=== PATIENT | male | born 1955 | race Caucasian/White ===

== ENCOUNTER 2023-08-03 22:16 | Observation (INO) | payer MEDICARE, OTHER ==
--- NOTE | 2023-08-03 22:57 | ED ---
General Adult HPI - General Chief complaint: Recheck/Abnormal Lab/Rx Stated complaint: Picc Line Replacement Time Seen by Provider: 08/03/23 22:26 Source: patient Mode of arrival: EMS Limitations: no limitations - History of Present Illness Initial comments: 68-year-old male with a history significant for aphasia following cerebral infarction and is normally bedbound presenting to the ED from [facility] by request of Dr. Montoya. Patient being treated with IV antibiotics through midline. This was apparently pulled out by the patient and was sent here for midline insertion by interventional radiology. Patient is nonverbal and unable to provide any meaningful history at this time. Does appear that patient was diagnosed with pneumonia with acute hypoxic respiratory failure and acute kidney injury on 07/08/2023. On 07/17/23 was diagnosed with MRSA. Review of medication administration shows patient is getting daptomycin 500 mg 1 dose every 48 hours due to pneumonia and MRSA. His last dose was completed on 31 July. - Related Data Allergies Allergy/AdvReac Type Severity Reaction Status Date / Time No Known Allergies Allergy Verified 08/03/23 22:28 Review of Systems ROS Statement: Those systems with pertinent positive or pertinent negative responses have been documented in the HPI. ROS Other: All systems not noted in ROS Statement are negative. Past Medical History Past Medical History: CVA/TIA, Diabetes Mellitus, Renal Disease Additional Past Medical History / Comment(s): hemiplegia and hemparesis post cva, CKD, depression, aphasia, MRSA, anemia, reoccurent uti, htn, generalized muscle weakness. PICC line History of Any Multi-Drug Resistant Organisms: None Reported Past Psychological History: Unable to Obtain Smoking Status: Unknown if ever smoked Past Alcohol Use History: Unable to Obtain Past Drug Use History: Unable to Obtain General Exam Limitations: no limitations General appearance: alert, other (Makes incoherent noises) Neck exam: Present: normal inspection Respiratory exam: Present: other (Coarse breath sounds bilaterally) Cardiovascular Exam: Present: tachycardia GI/Abdominal exam: Present: soft Skin exam: Present: warm, dry Course Vital Signs 08/03/23 22:21 Temperature 97.9 F Pulse Rate 121 H Respiratory 20 Rate Blood Pressure 150/74 O2 Sat by Pulse 97 Oximetry Medical Decision Making - Medical Decision Making Was pt. sent in by a medical professional or institution (, PA, SWITCHBOARD OPERATOR RECEPTIONIST, urgent care, hospital, or alf...) When possible be specific @ -[facility] Did you speak to anyone other than the patient for history (EMS, parent, family, police, friend...)? What history was obtained from this source @ -No Did you review nursing and triage notes (agree or disagree)? Why? @ -I reviewed and agree with nursing and triage notes Were old charts reviewed (outside hosp., previous admission, EMS record, old EKG, old radiological studies, urgent care reports/EKG's, alf records)? Report findings @ -[facility] Entirety of history obtained from this.obtained Differential Diagnosis (chest pain, altered mental status, abdominal pain women, abdominal pain men, vaginal bleeding, weakness, fever, dyspnea, syncope, headache, dizziness, GI bleed, back pain, seizure, CVA, palpatations, mental health, musculoskeletal)? @ -Differential Fever: Pneumonia, viral URI, endocarditis, myocarditis, pericarditis, otitis, sinusitis, peritonsillar Abscess, retropharyngeal Abscess, epiglottitis, peritonitis, appendicitis, Ramya cystitis, diverticulitis, hepatitis, colitis, UTI, PID, TOA, pyelonephritis, prostatitis, epididymitis, meningitis, encephalitis, pulmonary embolism, CVA, thyroid storm, pancreatitis, adrenal crisis, cavernous sinus thrombosis, this is not meant to be an all-inclusive list. EKG interpreted by me (3pts min.). @ - EKG interpreted me showing a sinus tachycardia at 129 bpm with no obvious ST or T wave changes however interpretation limited secondary to artifact. AL 172, QRS 63, QT/QTc 380/456 X-rays interpreted by me (1pt min.). @ -Chest x-ray inter by me which does show evidence of pneumonia. CT interpreted by me (1pt min.). @ -None done U/S interpreted by me (1pt. min.). @ -None done What testing was considered but not performed or refused? (CT, X-rays, U/S, labs)? Why? @ -None What meds were considered but not given or refused? Why? @ -None Did you discuss the management of the patient with other professionals (professionals i.e. , PA, SWITCHBOARD OPERATOR RECEPTIONIST, lab, RT, psych nurse, outreach and education social worker, show card writer, teacher, public information officer, telephonic case manager)? Give summary @ -Case discussed with Nataly who accepts admission under [facility]. Was smoking cessation discussed for >3mins.? @ -No Was critical care preformed (if so, how long)? @ -No Were there social determinants of health that impacted care today? How? (Homelessness, low income, unemployed, alcoholism, drug addiction, transportation, low edu. Level, literacy, decrease access to med. care, penitentiary, re hab)? @ -No Was there de-escalation of care discussed even if they declined (Discuss DNR or withdrawal of care, Hospice)? DNR status @ -No What co-morbidities impacted this encounter? (DM, HTN, Smoking, COPD, CAD, Cancer, CVA, ARF, Chemo, Hep., AIDS, mental health diagnosis, sleep apnea, morbid obesity)? @ -History of CVA with aphasia Was patient admitted / discharged? Hospital course, mention meds given and route, prescriptions, significant lab abnormalities, going to OR and other pertinent info. @ -Admission 63-year-old male sent from [facility]. According the paperwork was receiving treatment for MRSA and pneumonia with daptomycin 500 mg every 48 hours through PICC line. His last dose was on 08/01/2023. Patient pulled the PICC line out and was sent in for admission for new PICC line. Patient will be admitted with consult to interventional radiology for PICC line placement. At this time laboratory workup is pending however chest x-ray does show evidence of pneumonia. Undiagnosed new problem with uncertain prognosis? @ -No Drug Therapy requiring intensive monitoring for toxicity (Heparin, Nitro, Insulin, Cardizem)? @ -No Were any procedures done? @ -No Diagnosis/symptom? @ -PICC line replacement Acute, or Chronic, or Acute on Chronic? @ -Acute Uncomplicated (without systemic symptoms) or Complicated (systemic symptoms)? @ -Uncomplicated Side effects of treatment? @ -No Exacerbation, Progression, or Severe Exacerbation? @ -No Poses a threat to life or bodily function? How? (Chest pain, [place], [place], pneumonia, PE, COPD, DKA, ARF, appy, cholecystitis, CVA, Diverticulitis, Homicidal, Suicidal, threat to staff... and all critical care pts) @ -Unlikely Disposition Clinical Impression: PIC line (peripherally inserted central catheter) removal Disposition: ADMITTED IP TO THIS HOSP Condition: Good Referrals: Tony Bhatia DO [Primary Care Provider] - 1-2 days Time of Disposition: 01:00
--- NOTE | 2023-08-04 00:19 | XR ---
EXAM: XR Chest, 1 View CLINICAL HISTORY: ITS.REASON XR Reason: hx pna TECHNIQUE: Frontal view of the chest. COMPARISON: No relevant prior studies available. FINDINGS: Lungs: Hazy right mid and lower lung zone opacity. Left lung is clear. Pleural space: Small circumferentially loculated right pleural effusion. No left pleural effusion. No pneumothorax. Heart: Unremarkable. No cardiomegaly or pulmonary vascular congestion. Bones/joints: No acute fracture. No dislocation. IMPRESSION: 1. Hazy right mid and lower lung zone opacity. Correlate clinically for pneumonia. 2. Small circumferentially loculated right pleural effusion.
[2023-08-04 01:13] LABS: Anisocytosis Moderate; Basophils # (A) 0.1 k/uL (0-0.2); Basophils % (A) 0 %; Eosinophils # (A) 0.4 k/uL (0-0.7); Eosinophils % (A) 3 %; HCT 31.6 % (39.0-53.0); HGB 9.8 gm/dL (13.0-17.5); Hypochromasia Marked; Lymphocytes # (A) 1.1 k/uL (1.0-4.8); Lymphocytes % (A) 7 %; MCH 24.9 pg (25.0-35.0); MCHC 30.9 g/dL (31.0-37.0); MCV 80.4 fL (80.0-100.0); Mean Platelet Volume 7.9; Microcytosis Slight; Monocytes # (A) 0.7 k/uL (0-1.0); Monocytes % (A) 4 %; Neutrophils # (A) 13.4 k/uL (1.3-7.7); Neutrophils % (A) 85 %; Platelet Count 324 k/uL (150-450); RBC 3.93 m/uL (4.30-5.90); RDW 20.3 % (11.5-15.5); WBC 15.8 k/uL (3.8-10.6)
[2023-08-04] MEDS ORDERED: NALOXONE 0.4 MG/ML 1 ML VIAL IV PRN (01:13)
[2023-08-04] MEDS ORDERED: ACETAMINOPHEN TAB 325 MG TAB PO PRN (01:20)
[2023-08-04] MEDS ORDERED: HYDROmorphone 1 MG/ML 1 ML SYRINGE IVP PRN (01:20)
[2023-08-04] MEDS: SODIUM CHLORIDE 0.9% 1,000 ML IV SCH (01:30)
[2023-08-04] MEDS: DAPTOmycin 500 MG in SODIUM CHLORIDE 0.9% 50 ML IVPB SCH (01:31)
[2023-08-04] MEDS: ONDANSETRON 4 MG/2 ML VIAL IVP PRN (01:33)
[2023-08-04 01:38] LABS: ALT 21 U/L (4-49); AST 27 U/L (17-59); African American GFR (CKD) 53 (>60 ml/min/1.73 sqM); Albumin 3.8 g/dL (3.5-5.0); Alkaline Phosphatase 142 U/L (38-126); Anion Gap 12 mmol/L; Blood Urea Nitrogen 45 mg/dL (9-20); Calcium 9.1 mg/dL (8.4-10.2); Carbon Dioxide 25 mmol/L (22-30); Chloride 104 mmol/L (98-107); Glucose 152 mg/dL (74-99); Non-African American GFR(CKD) 46 (>60 ml/min/1.73 sqM); Sodium 141 mmol/L (137-145); Total Bilirubin 0.4 mg/dL (0.2-1.3); Total Protein 8.2 g/dL (6.3-8.2)
[2023-08-04 01:48] LABS: Partial Thromboplastin Time 24.4 sec (22.0-30.0); Prothrombin Time 10.8 sec (10.0-12.5)
[2023-08-04] MEDS ORDERED: DEXTROSE 50% SYRINGE 50 ML IVP PRN ×2 (02:56)
[2023-08-04] MEDS: SODIUM CHLORIDE 0.9% 1,000 ML IV ONE (03:36)
[2023-08-04] MEDS: METOCLOPRAMIDE 5 MG/ML 2 ML VIAL IVP STA (04:06)
--- NOTE | 2023-08-04 05:41 | CT ---
EXAM: CT Abdomen and Pelvis Without Intravenous Contrast CLINICAL HISTORY: intractable n v TECHNIQUE: Axial computed tomography images of the abdomen and pelvis without intravenous contrast. CTDI is 8.3 mGy and DLP is 523.4 mGy-cm. This CT exam was performed using one or more of the following dose reduction techniques: automated exposure control, adjustment of the mA and/or kV according to patient size, and/or use of iterative reconstruction technique. Coronal and sagittal reformatted images were created and reviewed. 640 images COMPARISON: No relevant prior studies available. FINDINGS: Lung bases: Small to moderate consolidations of bilateral lower lobes with the air bronchogram, larger on the right. Pleural space: Small bilateral pleural effusions. ABDOMEN: Liver: Mild hepatomegaly. Gallbladder and bile ducts: Cholecystectomy clips. No ductal dilation. Pancreas: Unremarkable. No ductal dilation. Spleen: Unremarkable. No splenomegaly. Adrenals: Unremarkable. No mass. Kidneys and ureters: Likely left renal cysts, measuring up to 5.3 cm. No obstructing stones. No hydronephrosis. Stomach and bowel: Unremarkable. No obstruction. No mucosal thickening. PELVIS: Appendix: Normal appendix. Bladder: Unremarkable. No stones. Reproductive: Unremarkable as visualized. ABDOMEN and PELVIS: Intraperitoneal space: Unremarkable. No free air. No significant fluid collection. Bones/joints: Osteopenia. Moderate degenerative changes. 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 Soft tissues: Retracted or undescended right testis. Small fat- containing left inguinal hernia. Vasculature: Moderate amount of atherosclerotic calcifications. No abdominal aortic aneurysm. Lymph nodes: Unremarkable. No enlarged lymph nodes. Tubes, lines and devices: PEG tube is in place. IMPRESSION: 1. Small bilateral pleural effusions. 2. Small to moderate consolidations of bilateral lower lobes with the air bronchogram, larger on the right. Bilateral pneumonia and/or atelectasis versus aspiration, worse on the right.
[2023-08-04 07:53] LABS: Glucose,Whole Blood 152 mg/dL (70-110)
[2023-08-04] MEDS: INSULIN ASPART (NovoLOG) 100 UNIT/ML VIAL SQ SCH (08:19)
[2023-08-04] MEDS: PANTOPRAZOLE 40 MG TABLET PO SCH (08:41)
[2023-08-04] MEDS: METOPROLOL TARTRATE 12.5 MG TAB PO SCH (08:41)
[2023-08-04 10:00] LABS: Appearance,Urine Clear (Clear); Bilirubin,Urine Negative (Negative); Blood,Urine Trace (Negative); Color,Urine Colorless; Glucose,Urine (UA) Negative (Negative); Ketones,Urine Negative (Negative); Leukocyte Esterase,Urine Large (Negative); Mucus,Urine Occasional /hpf; Nitrite,Urine Positive (Negative); Protein,Urine 1+ (Negative); RBC,Urine 1 /hpf (0-5); Specific Gravity,Urine 1.017 (1.001-1.035); Squamous Epithelial Cell,Urine <1 /hpf (0-4); Urobilinogen,Urine <2.0 mg/dL (<2.0); WBC,Urine 18 /hpf (0-5)
[2023-08-04] MEDS: FAMOTIDINE 20 MG/2 ML VIAL IV SCH (10:13)
[2023-08-04 12:15] LABS: Glucose,Whole Blood 132 mg/dL (70-110)
[2023-08-04] MEDS: DOCUSATE ORAL SOLN 100 MG/10 ML CUP PEG/G-TUBE SCH (13:45)
--- NOTE | 2023-08-04 15:12 | P.HPIM ---
History of Present Illness H&P Date: 08/04/23 Chief Complaint: PICC line pulled out This is a 68-year-old patient, is a resident of [facility]. Patient is at her previous stroke and patient is aphasic. Right-sided weakness. Nobody at the bedside to give a history. As per the ER notes patient on July 07 had pneumonia with respiratory failure and July 17, 2023 patient was diagnosed with MRSA. Has been getting daptomycin. Patient pulled out his PICC line. Was transferred here for a PICC line to be placed. Last dose apparently was on July 31. Patient laying in bed. Eyes open. Not really able to communicate. Has a PEG tube. Nonambulatory. Review of systems: Unable to obtain as patient nonverbal. Physical examination: VITAL SIGNS: 97.9, 120, 20, 150/74, 97% room air upon presentation GENERAL: BMI 22.8, laying in bed awake not in distress. EYES: Pupils equal. Conjunctiva manju l. HEENT: [External appearance of nose and ears normal, oral cavity dry mucous membrane NECK: JVD not raised; masses not palpable. HEART: First and second heart sounds are normal; no edema. LUNGS: Respiratory rate normal; clear to auscultation. ABDOMEN: Soft, nontender, liver spleen not palpable, no masses palpable. PEG tube PSYCH: [Patient is nonverbal, unable to assess l. MUSCULOSKELETAL:No Clubbing/cyanosis;muscles-grossly intact NEUROLOGICAL: Patient is aphasic. No movement in the right arm or right leg. Contracture of the right hand.. LYMPHATICS: No lymph nodes palpable in the axilla and neck INVESTIGATIONS, reviewed in the clinical context: August 03: White count 15.8 hemoglobin 9.8 platelets 324 potassium 5 BUN 45 creatinine 1.54 EKG tracing personally reviewed by me-sinus tachycardia. Rate 129 nonspecific T wave changes. Chest x-ray film personally reviewed by me-portable. Some decrease in volume on the right side. Rotated film. Probable infiltrate CT abdomen pelvis: Small to moderate consolidation of bilateral lower lobes with air bronchograms. Larger on the right. Assessment and plan: -PICC line, pulled out by the patient accidentally. Admitted for replacement of the same -Recent pneumonia. Patient has no active symptoms. Pulse ox is good on room air. Breathing comfortable. -Sinus tachycardia likely from decreased fluid intake/dehydration -Probable chronic kidney disease. Stage III. Baseline labs not available. -Diabetes mellitus type 2, chronically insulin Follow Accu-Cheks. Resume home dose. -Right hemiparesis from prior stroke. Patient nonambulatory. -Chronic dysphagia and dysarthria PEG tube for feeding -Recent MRSA infection Patient to continue with daptomycin once IV access is done. Past Medical History Past Medical History: CVA/TIA, Diabetes Mellitus, Renal Disease Additional Past Medical History / Comment(s): hemiplegia and hemparesis post cva, CKD, depression, aphasia, MRSA, anemia, reoccurent uti, htn, generalized muscle weakness. PICC line History of Any Multi-Drug Resistant Organisms: None Reported Past Psychological History: Unable to Obtain Smoking Status: Unknown if ever smoked Past Alcohol Use History: Unable to Obtain Past Drug Use History: Unable to Obtain Medications and Allergies Home Medications Medication Instructions Recorded Confirmed Type Acetaminophen Oral Susp [Tylenol] 650 mg PEG/G-TUBE QID@05,11,17,23 08/04/23 08/04/23 History Atorvastatin Calcium [Lipitor] 40 mg PEG/G-TUBE HS 08/04/23 08/04/23 History Budesonide [Pulmicort] 0.5 mg INHALATION RT-BID@08,199908/04/23 08/04/23 History DAPTOmycin [Cubicin] 500 mg IV Q48H 08/04/23 08/04/23 History Docusate Oral Soln [Colace Oral 100 mg PEG/G-TUBE BID 08/04/23 08/04/23 History Soln] Famotidine [Pepcid] 20 mg PEG/G-TUBE BID 08/04/23 08/04/23 History Fluconazole [Diflucan] 150 mg PEG/G-TUBE DAILY 08/04/23 08/04/23 History Insulin Glargine,Hum.rec.anlog 22 units SQ BID@08,199908/04/23 08/04/23 History [Insulin Glargine Solostar] Insulin Lispro [Insulin Lispro See Protocol SQ ACHS 08/04/23 08/04/23 History Kwikpen U-100] Ipratropium-Albuterol Nebulize 3 ml INHALATION RT-QID 08/04/23 08/04/23 History [Duoneb 0.5 mg-3 mg/3 ml Soln] Metoprolol Tartrate [Lopressor] 12.5 mg PEG/G-TUBE BID 08/04/23 08/04/23 History Mirtazapine [Remeron Soluspan] 30 mg PEG/G-TUBE HS 08/04/23 08/04/23 History Multivitamins, Thera Liquid 5 ml PEG/G-TUBE DAILY@1600 08/04/23 08/04/23 History [Theragran Liquid (formulary)] Saline Flush 0.9% 10 ml IV DIRECTED 08/04/23 08/04/23 History Sennosides [Senokot] 17.2 mg PEG/G-TUBE HS 08/04/23 08/04/23 History Allergies Allergy/AdvReac Type Severity Reaction Status Date / Time No Known Allergies Allergy Verified 08/04/23 08:34 Physical Exam Vitals: Vital Signs Temp Pulse Resp BP Pulse Ox 08/04/23 07:50 98.5 F 62 18 124/67 97 08/04/23 06:00 98.4 F 129 H 16 133/70 97 08/04/23 03:53 97.5 F L 128 H 20 125/72 95 08/03/23 22:21 97.9 F 121 H 20 150/74 97 Intake and Output 08/03/23 08/04/23 08/04/23 22:59 06:59 14:59 Intake Total 1000 Output Total 1200 Balance 1000 -1200 Intake: IV 1000 Invasive Line 2 1000 Output: Urine 600 Uretheral (Gray) 600 Post Void Residual 600 Other: Weight 68.039 kg Results CBC & Chem 7: 08/04/23 00:54 08/04/23 00:54 Labs: Abnormal Lab Results - Last 24 Hours (Table) 08/04/23 08/04/23 08/04/23 Range/Units 00:54 00:54 07:47 WBC 15.8 H (3.8-10.6) k/uL RBC 3.93 L (4.30-5.90) m/uL Hgb 9.8 L (13.0-17.5) gm/dL Hct 31.6 L (39.0-53.0) % MCH 24.9 L (25.0-35.0) pg MCHC 30.9 L (31.0-37.0) g/dL RDW 20.3 H (11.5-15.5) % Neutrophils # 13.4 H (1.3-7.7) k/uL BUN 45 H (9-20) mg/dL Creatinine 1.54 H (0.66-1.25) mg/dL Glucose 152 H (74-99) mg/dL POC Glucose (mg/dL) 152 H (70-110) mg/dL Alkaline Phosphatase 142 H (38-126) U/L
[2023-08-04] MEDS: IPRATROPIUM-ALBUTEROL 3 ML NEB INHALATION SCH (15:34)
[2023-08-04] MEDS: MULTIVITAMINS, THERA LIQUID 237 ML BOTTLE PEG/G-TUBE SCH (16:00)
[2023-08-04 16:35] VITALS: BP 130/68; PULSE 121; RESP 22; TEMP 97.9
[2023-08-04] MEDS ORDERED: MIRTAZAPINE 15 MG TAB PEG/G-TUBE SCH (21:00)
[2023-08-04] MEDS ORDERED: ATORVASTATIN 40 MG TAB PEG/G-TUBE SCH (21:00)
[2023-08-04] MEDS ORDERED: SENNOSIDES 8.6 MG TAB PEG/G-TUBE SCH (21:00)
[2023-08-04] MEDS ORDERED: INSULIN DETEMIR (LEVEMIR) 100 UNIT/ML SYR SQ SCH (21:00)
[2023-08-04] MEDS: BUDESONIDE 0.5 MG/2 ML NEBU INHALATION SCH (23:45)
[2023-08-04] MEDS ORDERED: VANCOMYCIN IV PER PHARMACY 1 EACH MISC MISCELLANE PRN (23:54)
--- NOTE | 2023-08-04 23:54 | P.CONS ---
History of Present Illness - Reason for Consult Consult date: 08/04/23 - History of Present Illness Patient is a 68-year-old male with a past medical history significant for diabetes mellitus and renal disease CVA TIA, patient apparently was recently diagnosed with MRSA pneumonia and the patient has been treated with the daptomycin apparently the patient did pull out his midline and the patient has been sent to the hospital for placement of PICC line patient on arrival to the ER was afebrile he was tachycardic but not hypotensive or hypoxic patient did have white count of 15.8 creatinine is 1.54 liver enzymes are normal urine is positive patient did have a chest x-ray his right mid and lower lung opacity clinically correlate for pneumonia patient did have a abdominal pelvis CT small bilateral effusion small to moderate consolidation bilateral lower lobes with air bronchograms larger on the right bilateral pneumonia atelectasis versus aspiration patient has been continued on daptomycin infectious disease was consulted regarding MRSA plus pneumonia and need for antibiotic therapy most information has been obtained from review the chart as the patient himself cannot provide any history Past Medical History Past Medical History: CVA/TIA, Diabetes Mellitus, Renal Disease Additional Past Medical History / Comment(s): hemiplegia and hemparesis post cva, CKD, depression, aphasia, MRSA, anemia, reoccurent uti, htn, generalized muscle weakness. PICC line History of Any Multi-Drug Resistant Organisms: None Reported Past Psychological History: Unable to Obtain Smoking Status: Unknown if ever smoked Past Alcohol Use History: Unable to Obtain Past Drug Use History: Unable to Obtain Medications and Allergies Home Medications Medication Instructions Recorded Confirmed Type Acetaminophen Oral Susp [Tylenol] 650 mg PEG/G-TUBE QID@05,11,17,23 08/04/23 08/04/23 History Atorvastatin Calcium [Lipitor] 40 mg PEG/G-TUBE HS 08/04/23 08/04/23 History Budesonide [Pulmicort] 0.5 mg INHALATION RT-BID@0800,199908/04/23 08/04/23 Hist ory DAPTOmycin [Cubicin] 500 mg IV Q48H 08/04/23 08/04/23 History Docusate Oral Soln [Colace Oral 100 mg PEG/G-TUBE BID 08/04/23 08/04/23 History Soln] Famotidine [Pepcid] 20 mg PEG/G-TUBE BID 08/04/23 08/04/23 History Fluconazole [Diflucan] 150 mg PEG/G-TUBE DAILY 08/04/23 08/04/23 History Insulin Glargine,Hum.rec.anlog 22 units SQ BID@0800,2000 08/04/23 08/04/23 History [Insulin Glargine Solostar] Insulin Lispro [Insulin Lispro See Protocol SQ ACHS 08/04/23 08/04/23 History Kwikpen U-100] Ipratropium-Albuterol Nebulize 3 ml INHALATION RT-QID 08/04/23 08/04/23 History [Duoneb 0.5 mg-3 mg/3 ml Soln] Metoprolol Tartrate [Lopressor] 12.5 mg PEG/G-TUBE BID 08/04/23 08/04/23 History Mirtazapine [Remeron Soluspan] 30 mg PEG/G-TUBE HS 08/04/23 08/04/23 History Multivitamins, Thera Liquid 5 ml PEG/G-TUBE DAILY@1600 08/04/23 08/04/23 History [Theragran Liquid (formulary)] Saline Flush 0.9% 10 ml IV DIRECTED 08/04/23 08/04/23 History Sennosides [Senokot] 17.2 mg PEG/G-TUBE HS 08/04/23 08/04/23 History Allergies Allergy/AdvReac Type Severity Reaction Status Date / Time No Known Allergies Allergy Verified 08/04/23 08:34 Physical Exam Vitals: Vital Signs Temp Pulse Resp BP Pulse Ox 08/04/23 07:50 98.5 F 62 18 124/67 97 08/04/23 06:00 98.4 F 129 H 16 133/70 97 08/04/23 03:53 97.5 F L 128 H 20 125/72 95 08/03/23 22:21 97.9 F 121 H 20 150/74 97 Intake and Output 08/03/23 08/04/23 08/04/23 22:59 06:59 14:59 Intake Total 1000 Output Total 1200 Balance 1000 -1200 Intake: IV 1000 Invasive Line 2 1000 Output: Urine 600 Uretheral (Gray) 600 Post Void Residual 600 Other: Weight 68.039 kg Results CBC & Chem 7: 08/04/23 00:54 08/04/23 00:54 Labs: Abnormal Lab Results - Last 24 Hours (Table) 08/04/23 08/04/23 08/04/23 Range/Units 00:54 00:54 07:47 WBC 15.8 H (3.8-10.6) k/uL RBC 3.93 L (4.30-5.90) m/uL Hgb 9.8 L (13.0-17.5) gm/dL Hct 31.6 L (39.0-53.0) % MCH 24.9 L (25.0-35.0) pg MCHC 30.9 L (31.0-37.0) g/dL RDW 20.3 H (11.5-15.5) % Neutrophils # 13.4 H (1.3-7.7) k/uL BUN 45 H (9-20) mg/dL Creatinine 1.54 H (0.66-1.25) mg/dL Glucose 152 H (74-99) mg/dL POC Glucose (mg/dL) 152 H (70-110) mg/dL Alkaline Phosphatase 142 H (38-126) U/L Urine Protein (Negative) Urine Blood (Negative) Ur Leukocyte Esterase (Negative) Urine WBC (0-5) /hpf Urine Mucus (None) /hpf 08/04/23 Range/Units 09:32 WBC (3.8-10.6) k/uL RBC (4.30-5.90) m/uL Hgb (13.0-17.5) gm/dL Hct (39.0-53.0) % MCH (25.0-35.0) pg MCHC (31.0-37.0) g/dL RDW (11.5-15.5) % Neutrophils # (1.3-7.7) k/uL BUN (9-20) mg/dL Creatinine (0.66-1.25) mg/dL Glucose (74-99) mg/dL POC Glucose (mg/dL) (70-110) mg/dL Alkaline Phosphatase (38-126) U/L Urine Protein 1+ H (Negative) Urine Blood Trace H (Negative) Ur Leukocyte Esterase Large H (Negative) Urine WBC 18 H (0-5) /hpf Urine Mucus Occasional H (None) /hpf Assessment and Plan Plan: 1patient apparently has been diagnosed with MRSA pneumonia in the outpatient setting for the patient has been getting daptomycin patient did pull out his midline for the patient has been sent to the ER unfortunately I do not have access to his culture data on the base of which she has been diagnosed with MRSA pneumonia and daptomycin is not a drug to treat MRSA pneumonia 2-unfortunately the patient is on Remeron and we cannot use Zyvox for this presumed MRSA pneumonia 3-patient to have mild renal insufficiency and high risk of nephrotoxicity with vancomycin 4-we will check a CRP procalcitonin and try to obtain a sputum for Gram stain culture 5-switch antibiotic to vancomycin if any worsening of the kidney function we will try to arrange for Teflaro We will follow on clinical condition and cultures to further adjust medication if needed Thank you for this consultation we will follow the patient along with you Dictation was produced using [employer] dictation software. please excuse any grammatical, word or spelling errors. Time with Patient: Greater than 30
--- NOTE | 2023-08-05 20:00 | P.DS ---
Providers Date of admission: 08/04/23 02:43 Expected date of discharge: 08/04/23 Attending physician: Zbigniew Santo Consults: 08/04/23 01:22 Consult Physician Urgent Consulting Provider: Iris Jordan Consult Reason/Comments: IV abx reportedly MRSA + PNA Do you want consulting provider notified?: Yes Primary care physician: [facility] Course: Chief Complaint: PICC line pulled out This is a 68-year-old patient, is a resident of [facility]. Patient is at her previous stroke and patient is aphasic. Right-sided weakness. Nobody at the bedside to give a history. As per the ER notes patient on July 07 had pneumonia with respiratory failure and July 17, 2023 patient was diagnosed with MRSA. Has been getting daptomycin. Patient pulled out his PICC line. Was transferred here for a PICC line to be placed. Last dose apparently was on July 31. Patient laying in bed. Eyes open. Not really able to commun icate. Has a PEG tube. Nonambulatory. Midline was placed. Patient being discharged back to the [facility]. Physical examination: VITAL SIGNS: 97.9, 120, 20, 150/74, 97% room air upon presentation GENERAL: BMI 22.8, laying in bed awake not in distress. EYES: Pupils equal. Conjunctiva manju l. HEENT: [External appearance of nose and ears normal, oral cavity dry mucous membrane NECK: JVD not raised; masses not palpable. HEART: First and second heart sounds are normal; no edema. LUNGS: Respiratory rate normal; clear to auscultation. ABDOMEN: Soft, nontender, liver spleen not palpable, no masses palpable. PEG tube PSYCH: [Patient is nonverbal, unable to assess l. MUSCULOSKELETAL:No Clubbing/cyanosis;muscles-grossly intact NEUROLOGICAL: Patient is aphasic. No movement in the right arm or right leg. Contracture of the right hand.. LYMPHATICS: No lymph nodes palpable in the axilla and neck INVESTIGATIONS, reviewed in the clinical context: August 03: White count 15.8 hemoglobin 9.8 platelets 324 potassium 5 BUN 45 creatinine 1.54 EKG tracing personally reviewed by ny-sinus tachycardia. Rate 129 nonspecific T wave changes. Chest x-ray film personally reviewed by ny-portable. Some decrease in volume on the right side. Rotated film. Probable infiltrate CT abdomen pelvis: Small to moderate consolidation of bilateral lower lobes with air bronchograms. Larger on the right. Assessment and plan: -PICC line, pulled out by the patient accidentally. Midline was placed -Recent pneumonia. Patient has no active symptoms. Pulse ox is good on room air. Breathing comfortable. -Sinus tachycardia likely from decreased fluid intake/dehydration -Probable chronic kidney disease. Stage III. Baseline labs not available. -Diabetes mellitus type 2, chronically insulin Follow Accu-Cheks. Resume home dose. -Right hemiparesis from prior stroke. Patient nonambulatory. -Chronic dysphagia and dysarthria PEG tube for feeding -Recent MRSA infection Continue with outpatient antibiotics Disposition: ECF Past Medical History Past Medical History: CVA/TIA, Diabetes Mellitus, Renal Disease Additional Past Medical History / Comment(s): hemiplegia and hemparesis post cva, CKD, depression, aphasia, MRSA, anemia, reoccurent uti, htn, generalized muscle weakness. PICC line History of Any Multi-Drug Resistant Organisms: None Reported Past Psychological History: Unable to Obtain Smoking Status: Unknown if ever smoked Past Alcohol Use History: Unable to Obtain Past Drug Use History: Unable to Obtain Plan - Discharge Summary New Discharge Prescriptions: Continue Saline Flush 0.9% 10 ml IV DIRECTED Acetaminophen Oral Susp [Tylenol] 650 mg PEG/G-TUBE QID@05,11,17,23 Atorvastatin Calcium [Lipitor] 40 mg PEG/G-TUBE HS Docusate Oral Soln [Colace Oral Soln] 100 mg PEG/G-TUBE BID Famotidine [Pepcid] 20 mg PEG/G-TUBE BID Insulin Glargine,Hum.rec.anlog [Insulin Glargine Solostar] 22 units SQ BID@08,1999 Metoprolol Tartrate [Lopressor] 12.5 mg PEG/G-TUBE BID Multivitamins, Thera Liquid [Theragran Liquid (formulary)] 5 ml PEG/G-TUBE DAILY@1600 Sennosides [Senokot] 17.2 mg PEG/G-TUBE HS Budesonide [Pulmicort] 0.5 mg INHALATION RT-BID@0800,1999 DAPTOmycin [Cubicin] 500 mg IV Q48H Fluconazole [Diflucan] 150 mg PEG/G-TUBE DAILY Insulin Lispro [Insulin Lispro Kwikpen U-100] See Protocol SQ ACHS Ipratropium-Albuterol Nebulize [Duoneb 0.5 mg-3 mg/3 ml Soln] 3 ml INHALATION RT-QID Mirtazapine [Remeron Soluspan] 30 mg PEG/G-TUBE HS Discharge Medication List Acetaminophen Oral Susp [Tylenol] 650 mg PEG/G-TUBE QID@05,11,17,23 08/04/23 [History] Atorvastatin Calcium [Lipitor] 40 mg PEG/G-TUBE HS 08/04/23 [History] Budesonide [Pulmicort] 0.5 mg INHALATION RT-BID@0800,199908/04/23 [History] DAPTOmycin [Cubicin] 500 mg IV Q48H 08/04/23 [History] Docusate Oral Soln [Colace Oral Soln] 100 mg PEG/G-TUBE BID 08/04/23 [History] Famotidine [Pepcid] 20 mg PEG/G-TUBE BID 08/04/23 [History] Fluconazole [Diflucan] 150 mg PEG/G-TUBE DAILY 08/04/23 [History] Insulin Glargine,Hum.rec.anlog [Insulin Glargine Solostar] 22 units SQ BID@0800,199908/04/23 [History] Insulin Lispro [Insulin Lispro Kwikpen U-100] See Protocol SQ ACHS 08/04/23 [History] Ipratropium-Albuterol Nebulize [Duoneb 0.5 mg-3 mg/3 ml Soln] 3 ml INHALATION RT-QID 08/04/23 [History] Metoprolol Tartrate [Lopressor] 12.5 mg PEG/G-TUBE BID 08/04/23 [History] Mirtazapine [Remeron Soluspan] 30 mg PEG/G-TUBE HS 08/04/23 [History] Multivitamins, Thera Liquid [Theragran Liquid (formulary)] 5 ml PEG/G-TUBE DAILY@1600 08/04/23 [History] Saline Flush 0.9% 10 ml IV DIRECTED 08/04/23 [History] Sennosides [Senokot] 17.2 mg PEG/G-TUBE HS 08/04/23 [History] Follow up Appointment(s)/Referral(s): Tony Bhatia DO [Primary Care Provider] - 1-2 days Activity/Diet/Wound Care/Special Instructions: Place a sleeve on the [place] site before discharge Discharge Disposition: HOME SELF-CARE
== END 2023-08-05 00:48 | disposition home or self-care (01) ==
LOC: EC 22:16 → 6NMEDSUR 08-04 02:43
PROVIDERS: ADMIT Hospitalist; ATTEND Hospitalist
DX: T82.524A Displacement of infusion catheter, initial encounter (principal); J15.212 Pneumonia due to Methicillin resistant Staphylococcus aureus; E11.9 Type 2 diabetes mellitus without complications; I69.320 Aphasia following cerebral infarction; I69.351 Hemiplegia and hemiparesis following cerebral infarction affecting right dominant side; R47.1 Dysarthria and anarthria; R13.10 Dysphagia, unspecified; Z79.2 Long term (current) use of antibiotics; Z79.51 Long term (current) use of inhaled steroids; Z79.4 Long term (current) use of insulin; Z79.899 Other long term (current) drug therapy; Z93.1 Gastrostomy status
CPT/HCPCS: 96361; 96365; 96366; 96375; 99285; 51702; 51798; 36415; 93005; 36410; 76937; 80053; 83605; 85025; 85610; 85730; 81001; 87040; 71045; 74176; G0378 ×2; J2765; J2405; J3490; J0878

== ENCOUNTER 2023-10-18 10:31 | Emergency (ER) | payer MEDICARE, OTHER ==
--- NOTE | 2023-10-18 10:47 | ED ---
General Adult HPI - General Source: patient, RN notes reviewed, old records reviewed <Kasi Harvey - Last Filed: 10/18/23 14:42> <Oziel Bucio - Last Filed: 10/18/23 22:31> - General Stated complaint: Gl Issues Time Seen by Provider: 10/18/23 10:35 - History of Present Illness Initial comments: This is a 68-year-old male who presents to the emergency department from the long-term. Patient was sent in because they noticed some coffee-ground emesis at 8:00 but they waited till he was projectile vomiting before they sent the patient in. Patient is unable to give any further history. Patient is able to answer yes or no questions sometimes and he is said he is not in any abdominal pain at this time. Patient denies chest pain. Patient does have a history of kidney failure and recent pneumonia (Kasi Harvey) - Related Data Home Medications Medication Instructions Recorded Confirmed Acetaminophen Oral Susp [Tylenol] 650 mg PEG/G-TUBE QID@,,,08/04/23 10/18/23 Atorvastatin Calcium [Lipitor] 40 mg PEG/G-TUBE HS 08/04/23 10/18/23 Budesonide [Pulmicort] 0.5 mg INHALATION RT-BID@0800,199908/04/23 10/18/23 Docusate Oral Soln [Colace Oral 100 mg PEG/G-TUBE BID 08/04/23 10/18/23 Soln] Famotidine [Pepcid] 20 mg PEG/G-TUBE BID 08/04/23 10/18/23 Insulin Glargine,Hum.rec.anlog 22 units SQ BID@0800,199908/04/23 10/18/23 [Insulin Glargine Solostar] Insulin Lispro [Insulin Lispro See Protocol SQ ACHS@,,,08/04/23 10/18/23 Pepper U-100] Ipratropium-Albuterol Nebulize 3 ml INHALATION RT-QID@,,,08/04/23 10/18/23 [Duoneb 0.5 mg-3 mg/3 ml Soln] Metoprolol Tartrate [Lopressor] 12.5 mg PEG/G-TUBE BID 08/04/23 10/18/23 Mirtazapine [Remeron Soluspan] 30 mg PEG/G-TUBE HS 08/04/23 10/18/23 Multivitamins, Thera Liquid 5 ml PO HS 08/04/23 10/18/23 [Theragran Liquid (formulary)] Saline Flush 0.9% 50 ml PEG/G-TUBE DIRECTED 08/04/23 10/18/23 Sennosides [Senokot] 17.2 mg PEG/G-TUBE HS 08/04/23 10/18/23 Ferrous Sulfate [Feosol] 325 mg PEG/G-TUBE DAILY 10/18/23 10/18/23 Gabapentin [Neurontin] 100 mg PEG/G-TUBE HS 10/18/23 10/18/23 Saline Flush 0.9% 300 ml PEG/G-TUBE DIRECTED 10/18/23 10/18/23 Allergies Allergy/AdvReac Type Severity Reaction Status Date / Time No Known Allergies Allergy Verified 10/18/23 13:26 Review of Systems ROS Other: All systems not noted in ROS Statement are negative. <Kasi Harvey - Last Filed: 10/18/23 14:42> ROS Other: All systems not noted in ROS Statement are negative. <Oziel Bucio - Last Filed: 10/18/23 22:31> ROS Statement: Those systems with pertinent positive or pertinent negative responses have been documented in the HPI. Past Medical History Past Medical History: CVA/TIA, Diabetes Mellitus, Renal Disease Additional Past Medical History / Comment(s): hemiplegia and hemparesis post cva, CKD, depression, aphasia, MRSA, anemia, reoccurent uti, htn, generalized muscle weakness. PICC line History of Any Multi-Drug Resistant Organisms: None Reported Past Psychological History: Unable to Obtain Smoking Status: Unknown if ever smoked Past Alcohol Use History: Unable to Obtain Past Drug Use History: Unable to Obtain <Kasi Harvey - Last Filed: 10/18/23 14:42> General Exam <Kasi Harvey - Last Filed: 10/18/23 14:42> - General Exam Comments Initial Comments: GENERAL: Patient is well-developed and well-nourished. Patient is nontoxic and well- hydrated and is in mild distress. Patient has some what appears to be coffee- ground emesis around his lips ENT: Neck is soft and supple. No significant lymphadenopathy is noted. Oropharynx is clear. Moist mucous membranes. Neck has full range of motion without eliciting any pain. EYES: The sclera were anicteric and conjunctiva were pink and moist. Extraocular move ments were intact and pupils were equal round and reactive to light. Eyelids were unremarkable. PULMONARY: Patient has crackles in the bases CARDIOVASCULAR: There is a regular rate and rhythm without any murmurs gallops or rubs. ABDOMEN: Soft and nontender with normal bowel sounds. SKIN: Skin is clear with no lesions or rashes and otherwise unremarkable. NEUROLOGIC: Patient is alert and oriented x 1 as far as I can ascertain because he is aphasic. Cranial nerves II through XII are grossly intact. Patient has right- sided paralysis. Patient is aphasic MUSCULOSKELETAL: Normal extremities with adequate strength and full range of motion. No lower extremity swelling or edema. No calf tenderness. LYMPHATICS: No significant lymphadenopathy is noted PSYCHIATRIC: Normal psychiatric evaluation. (Kasi Harvey) Course Vital Signs 10/18/23 10/18/23 10/18/23 10:34 11:50 15:34 Temperature 97.8 F 97.6 F Pulse Rate 106 H 109 H 110 H Respiratory 16 16 18 Rate Blood Pressure 133/83 138/79 126/71 O2 Sat by Pulse 98 97 98 Oximetry 10/18/23 18:45 Temperature 98.2 F Pulse Rate 101 H Respiratory 18 Rate Blood Pressure 112/61 O2 Sat by Pulse 96 Oximetry Medical Decision Making - Lab Data Result diagrams: 10/18/23 10:51 10/18/23 10:51 <Kasi Harvey - Last Filed: 10/18/23 14:42> - Lab Data Result diagrams: 10/18/23 10:51 10/18/23 10:51 <Oziel Bucio - Last Filed: 10/18/23 22:31> - Medical Decision Making EKG is interpreted by myself read EKG shows a sinus rhythm at a rate of 95 bpm parables 154 QRS is 59 QT interval 325 QTc is 378. Patient's EKG shows no ST segment elevation or depression. Was pt. sent in by a medical professional or institution (, PA, MANAGER PAPER, urgent care, hospital, or long-term...) When possible be specific @ -No Did you speak to anyone other than the patient for history (EMS, parent, family, police, friend...)? What history was obtained from this source @ -No Did you review nursing and triage notes (agree or disagree)? Why? @ -I reviewed and agree with nursing and triage notes Were old charts reviewed (outside hosp., previous admission, EMS record, old EKG, old radiological studies, urgent care reports/EKG's, long-term records)? Report findings @ -No old charts were reviewed Differential Diagnosis? @ -Differential GI Bleed: Esophageal varices, aortoenteric fistula, Brandie[place], gastritis, peptic ulcer disease, diverticulosis, inflammatory bowel disease, hemorrhoids, fissure, colitis, malignancy, Meckels diverticulum, this is not meant to be an all- inclusive list. Differential Abdominal Pain Men: Appendicitis, cholecystitis, diverticulosis, ischemic bowel, pancreatitis, hepatitis, UTI, gastroenteritis, AAA, incarcerated hernia, bowel obstruction, constipation, inflammatory bowel, hepatitis, peptic ulcer disease, splenic infarction, perforated viscus, testicular torsion, this is not meant to be an all-inclusive list EKG interpreted by me (3pts min.). @ -As above X-rays interpreted by me (1pt min.). @ -Chest x-ray shows no acute abnormality. KUB shows a large gastric bubble. CT interpreted by me (1pt min.). @ -None done U/S interpreted by me (1pt. min.). @ -None done What testing was considered but not performed or refused? (CT, X-rays, U/S, labs)? Why? @ -None What meds were considered but not given or refused? Why? @ -None Did you discuss the management of the patient with other professionals (p rofessionals i.e. , PA, MANAGER PAPER, lab, RT, psych nurse, social sciences chair, obstetrics scrub nurse, teacher, bomb squad officer, case managers)? Give summary @ -No Was smoking cessation discussed for >3mins.? @ -No Was critical care preformed (if so, how long)? @ -No Were there social determinants of health that impacted care today? How? (Homelessness, low income, unemployed, alcoholism, drug addiction, transportation, low edu. Level, literacy, decrease access to med. care, care home, rehab)? @ -No Was there de-escalation of care discussed even if they declined (Discuss DNR or withdrawal of care, Hospice)? DNR status @ -No What co-morbidities impacted this encounter? (DM, HTN, Smoking, COPD, CAD, Cancer, CVA, ARF, Chemo, Hep., AIDS, mental health diagnosis, sleep apnea, morbid obesity)? @ -None Was patient admitted / discharged? Hospital course, mention meds given and route, prescriptions, significant lab abnormalities, going to OR and other pertinent info. @ -Dr. Bucio will be taking over the care of this patient at 3 PM (Kasi Harvey) Patient presents emergency department for coffee-ground emesis. Originally seen by previous provider. Signed out to me pending results of CT imaging and occult blood testing of emesis. Patient had an episode of coffee-ground emesis this morning at 8 AM. Had multiple episodes this morning, and has had at least 2 here in the department. Patient has remained hemodynamically stable. Patient's laboratory studies which were already obtained are remarkable for hemoglobin of 11.1, with most recent hemoglobin that we have here at 10.8. Patient is not on blood thinners. Patient does have an elevated BUN of 42. Patient's occult blood returned positive. Patient is mildly hyperkalemic at 5.4 which was treated with IV fluids. CT imaging was obtained and interpreted by myself as revealing a large amount of stool located in the sigmoid colon with what appears to be adequate placement of the PEG tube and some renal cyst. Possible pulmonary edema versus aspiration in the lung bases. No other obvious follow-up process at this time. No evidence of bowel obstruction. I did order the patient an IV Protonix as well as IV Zofran. Patient will also be given IV pain medications. At this time I believe it is best for the patient be transferred to a higher level of care as we have no gastroenterology service at our facility patient is having upper GI bleeding. Patient is protecting his airway and hemodynamically stable at this time. Per paperwork, patient is a full code. Vital signs are within acceptable limits at this time as well.vital signs within acceptable limits at time of transfer. I spoke with [facility] Dr. Ortega who accepted the transfer. I also spoke with the patient's daughter, clarisa who was in agreement with the plan. Diagnosis/symptom? @ -Upper GI bleed, coffee ground emesis Acute, or Chronic, or Acute on Chronic? @ -Acute Uncomplicated (without systemic symptoms) or Complicated (systemic symptoms)? @ -Complicated Side effects of treatment? @ -None Exacerbation, Progression, or Severe Exacerbation] @ -No Poses a threat to life or bodily function? @ -Yes (Oziel Bucio) - Lab Data Lab Results 10/18/23 10/18/23 10/18/23 Range/Units 10:45 10:50 10:51 WBC 14.3 H (3.8-10.6) k/uL RBC 4.33 (4.30-5.90) m/uL Hgb 11.1 L (13.0-17.5) gm/dL Hct 37.4 L (39.0-53.0) % MCV 86.4 (80.0-100.0) fL MCH 25.6 (25.0-35.0) pg MCHC 29.6 L (31.0-37.0) g/dL RDW 16.3 H (11.5-15.5) % Plt Count 279 (150-450) k/uL MPV 9.2 Neutrophils % 85 % Lymphocytes % 6 % Monocytes % 5 % Eosinophils % 2 % Basophils % 0 % Neutrophils # 12.2 H (1.3-7.7) k/uL Lymphocytes # 0.9 L (1.0-4.8) k/uL Monocytes # 0.8 (0-1.0) k/uL Eosinophils # 0.2 (0-0.7) k/uL Basophils # 0.0 (0-0.2) k/uL Hypochromasia Moderate Anisocytosis Slight PT (10.0-12.5) sec INR (<1.2) APTT (22.0-30.0) sec Sodium (137-145) mmol/L Potassium (3.5-5.1) mmol/L Chloride (98-107) mmol/L Carbon Dioxide (22-30) mmol/L Anion Gap mmol/L BUN (9-20) mg/dL Creatinine (0.66-1.25) mg/dL Est GFR (CKD-EPI)AfAm (>60 ml/min/1.73 sqM) Est GFR (CKD-EPI)NonAf (>60 ml/min/1.73 sqM) Glucose (74-99) mg/dL Plasma Lactic Acid Javier (0.7-2.0) mmol/L Calcium (8.4-10.2) mg/dL Magnesium (1.6-2.3) mg/dL Total Bilirubin (0.2-1.3) mg/dL AST (17-59) U/L ALT (4-49) U/L Alkaline Phosphatase (38-126) U/L Troponin I (0.000-0.034) ng/mL Total Protein (6.3-8.2) g/dL Albumin (3.5-5.0) g/dL Gastric Occult Blood (Negative) Blood Type A Positive Blood Type Confirm A Positive Blood Type Recheck No Previous Record Bld Type Recheck Status CABO Indicated Antibody Screen NEGATIVE Spec Expiration Date 10/21/2023 - 234910/18/23 10/18/23 10/18/23 Range/Units 10:51 10:51 10:51 WBC (3.8-10.6) k/uL RBC (4.30-5.90) m/uL Hgb (13.0-17.5) gm/dL Hct (39.0-53.0) % MCV (80.0-100.0) fL MCH (25.0-35.0) pg MCHC (31.0-37.0) g/dL RDW (11.5-15.5) % Plt Count (150-450) k/uL MPV Neutrophils % % Lymphocytes % % Monocytes % % Eosinophils % % Basophils % % Neutrophils # (1.3-7.7) k/uL Lymphocytes # (1.0-4.8) k/uL Monocytes # (0-1.0) k/uL Eosinophils # (0-0.7) k/uL Basophils # (0-0.2) k/uL Hypochromasia Anisocytosis PT 10.3 (10.0-12.5) sec INR 0.9 (<1.2) APTT 27.6 (22.0-30.0) sec Sodium 141 (137-145) mmol/L Potassium 5.4 H (3.5-5.1) mmol/L Chloride 107 (98-107) mmol/L Carbon Dioxide 24 (22-30) mmol/L Anion Gap 10 mmol/L BUN 42 H (9-20) mg/dL Creatinine 1.09 (0.66-1.25) mg/dL Est GFR (CKD-EPI)AfAm 80 (>60 ml/min/1.73 sqM) Est GFR (CKD-EPI)NonAf 69 (>60 ml/min/1.73 sqM) Glucose 148 H (74-99) mg/dL Plasma Lactic Acid Javier 1.2 (0.7-2.0) mmol/L Calcium 9.0 (8.4-10.2) mg/dL Magnesium 2.2 (1.6-2.3) mg/dL Total Bilirubin 0.4 (0.2-1.3) mg/dL AST 30 (17-59) U/L ALT 32 (4-49) U/L Alkaline Phosphatase 120 (38-126) U/L Troponin I (0.000-0.034) ng/mL Total Protein 7.4 (6.3-8.2) g/dL Albumin 4.0 (3.5-5.0) g/dL Gastric Occult Blood (Negative) Blood Type Blood Type Confirm Blood Type Recheck Bld Type Recheck Status Antibody Screen Spec Expiration Date 10/18/23 10/18/23 Range/Units 10:51 15:33 WBC (3.8-10.6) k/uL RBC (4.30-5.90) m/uL Hgb (13.0-17.5) gm/dL Hct (39.0-53.0) % MCV (80.0-100.0) fL MCH (25.0-35.0) pg MCHC (31.0-37.0) g/dL RDW (11.5-15.5) % Plt Count (150-450) k/uL MPV Neutrophils % % Lymphocytes % % Monocytes % % Eosinophils % % Basophils % % Neutrophils # (1.3-7.7) k/uL Lymphocytes # (1.0-4.8) k/uL Monocytes # (0-1.0) k/uL Eosinophils # (0-0.7) k/uL Basophils # (0-0.2) k/uL Hypochromasia Anisocytosis PT (10.0-12.5) sec INR (<1.2) APTT (22.0-30.0) sec Sodium (137-145) mmol/L Potassium (3.5-5.1) mmol/L Chloride (98-107) mmol/L Carbon Dioxide (22-30) mmol/L Anion Gap mmol/L BUN (9-20) mg/dL Creatinine (0.66-1.25) mg/dL Est GFR (CKD-EPI)AfAm (>60 ml/min/1.73 sqM) Est GFR (CKD-EPI)NonAf (>60 ml/min/1.73 sqM) Glucose (74-99) mg/dL Plasma Lactic Acid Javier (0.7-2.0) mmol/L Calcium (8.4-10.2) mg/dL Magnesium (1.6-2.3) mg/dL Total Bilirubin (0.2-1.3) mg/dL AST (17-59) U/L ALT (4-49) U/L Alkaline Phosphatase (38-126) U/L Troponin I <0.012 (0.000-0.034) ng/mL Total Protein (6.3-8.2) g/dL Albumin (3.5-5.0) g/dL Gastric Occult Blood Positive (Negative) Blood Type Blood Type Confirm Blood Type Recheck Bld Type Recheck Status Antibody Screen Spec Expiration Date Critical Care Time Critical Care Time: Yes Total Critical Care Time: 33 <Oziel Bucio - Last Filed: 10/18/23 22:31> Disposition <Kasi Harvey - Last Filed: 10/18/23 14:42> Time of Disposition: 16:10 - Out of Hospital Transfer - Req. Specs Out of Hospital Transfer - Requested Specifics: Other Emergency Center (Transfer to [facility] for GI evaluation as we do not have GI services here) <Oziel Bucio - Last Filed: 10/18/23 22:31> Clinical Impression: Coffee ground emesis, Upper GI bleed Disposition: OTHER INSTITUTION NOT DEFINED Condition: Stable Referrals: Tony Bhatia DO [Primary Care Provider] - 1-2 days
[2023-10-18] MEDS: SODIUM CHLORIDE 0.9% 500 ML 500 ML IV STA (10:49)
[2023-10-18 11:08] LABS: Anisocytosis Slight; Basophils % (A) 0 %; Eosinophils # (A) 0.2 k/uL (0-0.7); Eosinophils % (A) 2 %; HCT 37.4 % (39.0-53.0); HGB 11.1 gm/dL (13.0-17.5); Hypochromasia Moderate; Lymphocytes # (A) 0.9 k/uL (1.0-4.8); Lymphocytes % (A) 6 %; MCH 25.6 pg (25.0-35.0); MCHC 29.6 g/dL (31.0-37.0); MCV 86.4 fL (80.0-100.0); Mean Platelet Volume 9.2; Monocytes # (A) 0.8 k/uL (0-1.0); Monocytes % (A) 5 %; Neutrophils # (A) 12.2 k/uL (1.3-7.7); Neutrophils % (A) 85 %; Platelet Count 279 k/uL (150-450); RBC 4.33 m/uL (4.30-5.90); RDW 16.3 % (11.5-15.5); WBC 14.3 k/uL (3.8-10.6)
[2023-10-18 11:23] LABS: ALT 32 U/L (4-49); AST 30 U/L (17-59); African American GFR (CKD) 80 (>60 ml/min/1.73 sqM); Alkaline Phosphatase 120 U/L (38-126); Anion Gap 10 mmol/L; Blood Urea Nitrogen 42 mg/dL (9-20); Carbon Dioxide 24 mmol/L (22-30); Chloride 107 mmol/L (98-107); Glucose 148 mg/dL (74-99); INR 0.9 (<1.2); Magnesium 2.2 mg/dL (1.6-2.3); Non-African American GFR(CKD) 69 (>60 ml/min/1.73 sqM); Partial Thromboplastin Time 27.6 sec (22.0-30.0); Potassium 5.4 mmol/L (3.5-5.1); Prothrombin Time 10.3 sec (10.0-12.5); Sodium 141 mmol/L (137-145); Total Bilirubin 0.4 mg/dL (0.2-1.3); Total Protein 7.4 g/dL (6.3-8.2)
--- NOTE | 2023-10-18 12:09 | XR ---
EXAMINATION TYPE: XR chest 1V portable DATE OF EXAM: 10/18/2023 11:07 AM CLINICAL INDICATION:Male, 68 years old with history of Short of breath; [facility] COMPARISON: Chest radiographs from 08/03/2023 TECHNIQUE: XR chest 1V portable Frontal view of the chest. FINDINGS: Lungs/Pleura: There is no evidence of pleural effusion, focal consolidation, or pneumothorax. Pulmonary vascularity: Pulmonary vascular congestion. Heart/mediastinum: Cardiomediastinal silhouette is enlarged and stable. Musculoskeletal: No acute osseous pathology. IMPRESSION: Cardiomegaly and mild pulmonary vascular congestion. Correlate with BNP for congestive heart failure.
--- NOTE | 2023-10-18 12:11 | XR ---
EXAMINATION TYPE: XR KUB DATE OF EXAM: 10/18/2023 11:07 AM CLINICAL INDICATION:Male, 68 years old with history of Vomiting; [facility] COMPARISON: 08/04/2023 CT. TECHNIQUE: One radiographic view of the abdomen was obtained. FINDINGS: Gaseous distention of the stomach. Suspected PEG tube projects over the gastric lumen right upper quadrant cholecystectomy clips. Rgay catheter tip projects over the pelvis. IMPRESSION: 1. Gaseous distention of the stomach with suspected PEG tube in place. 2. Gray catheter in place.
[2023-10-18] MEDS: ONDANSETRON 4 MG/2 ML VIAL IVP STA (14:45)
[2023-10-18 15:36] VITALS: RESP 18
[2023-10-18] MEDS: MORPHINE SULFATE 4 MG/ML SYRINGE IVP STA (15:38)
[2023-10-18] MEDS: PANTOPRAZOLE 40 MG/10 ML VIAL IVP ONE (15:42)
--- NOTE | 2023-10-18 15:49 | CT ---
EXAMINATION TYPE: CT abdomen pelvis w con CT DLP: 833.3 mGycm, Automated exposure control for dose reduction was used. DATE OF EXAM: 10/18/2023 3:25 PM COMPARISON: CT abdomen pelvis most recent from 08/04/2023 CLINICAL INDICATION:Male, 68 years old with history of Abdominal pain; Abdominal pain, N/V. TECHNIQUE: Axial CT abdomen pelvis w con;Sagittal and coronal reformats were created on a separate w orkstation. Contrast used:80 mL of Isovue 300 with IV Contrast, (none if empty) Oral contrast used: without Oral Contrast (none if empty) FINDINGS: LOWER CHEST: Pulmonary edema in the lung bases. The heart is enlarged for size. ABDOMEN LIVER: Unremarkable GALLBLADDER AND BILE DUCTS: Gallbladder surgically absent. PANCREAS: Unremarkable. SPLEEN: Unremarkable. ADRENAL GLANDS: Unremarkable. KIDNEYS AND URETERS: No evidence of hydronephrosis or renal calculus. The ureters are unremarkable. r simple appearing left renal cysts. Nonobstructing left 3 mm calculus. No obstructive uropathy. PELVIS BLADDER: Gray catheter in the bladder. REPRODUCTIVE: Unremarkable. ABDOMEN & PELVIS STOMACH AND BOWEL: PEG tube with balloon in the stomach lumen. The duodenum is unremarkable. No evide nce of bowel obstruction. Large stool burden throughout the rectum and sigmoid colon PERITONEUM/RETROPERITONEUM: No evidence of pneumoperitoneum or free fluid. VASCULATURE: No evidence of aortic aneurysm. MUSCULOSKELETAL: No acute osseous abnormalities LYMPH NODES: No gross evidence for lymphadenopathy. SOFT TISSUE/ABDOMINAL WALL: Unremarkable IMPRESSION: 1. Large amount stool in the rectum and sigmoid colon. 2. Airspace opacities/pulmonary edema in the lung bases with cardiomegaly correlate with serum BNP. 3. PEG tube in appropriate position. 4. Left simple appearing renal cysts. 5. Left nonobstructing 3 mm calculus. 6. Gray catheter in place.
[2023-10-18] MEDS: cefTRIAXone IN SWFI 1,000 MG/10 ML SYRINGE IVP STA (16:33)
[2023-10-18] MEDS: SODIUM CHLORIDE 0.9% 1,000 ML IV STA (16:34)
[2023-10-18 18:47] VITALS: BP 112/61; PULSE 101; TEMP 98.2
== END 2023-10-18 19:10 | disposition other institution (70) ==
LOC: EC 10:31
DX: R11.10 Vomiting, unspecified (principal); K92.2 Gastrointestinal hemorrhage, unspecified; F17.200 Nicotine dependence, unspecified, uncomplicated; N28.1 Cyst of kidney, acquired
CPT/HCPCS: 99291; 96374; 96375 ×3; 96361 ×3; 36415; 86900; 86901; 80053; 83605; 83735; 84484; 85025; 85610; 85730; 86850; 82271; 71045; 74018; 74177; 43762; J2270; J2405; J0696; Q9967; J2470

== ENCOUNTER 2023-11-10 03:14 | Inpatient (IN) | payer MEDICARE, OTHER ==
[2023-11-10 04:10] LABS: Anisocytosis Slight; Basophils % (A) 0 %; Eosinophils # (A) 0.3 k/uL (0-0.7); Eosinophils % (A) 2 %; HCT 32.9 % (39.0-53.0); HGB 10.3 gm/dL (13.0-17.5); Hypochromasia Moderate; Lymphocytes # (A) 0.7 k/uL (1.0-4.8); Lymphocytes % (A) 6 %; MCHC 31.4 g/dL (31.0-37.0); MCV 82.7 fL (80.0-100.0); Mean Platelet Volume 8.4; Monocytes # (A) 0.5 k/uL (0-1.0); Monocytes % (A) 5 %; Neutrophils # (A) 9.8 k/uL (1.3-7.7); Neutrophils % (A) 86 %; Platelet Count 313 k/uL (150-450); RBC 3.98 m/uL (4.30-5.90); RDW 16.7 % (11.5-15.5); WBC 11.5 k/uL (3.8-10.6)
[2023-11-10 04:15] LABS: Partial Thromboplastin Time 25.9 sec (22.0-30.0); Prothrombin Time 10.8 sec (10.0-12.5)
[2023-11-10] MEDS: PANTOPRAZOLE 40 MG/10 ML VIAL IVP STA (04:19)
--- NOTE | 2023-11-10 04:20 | ED ---
GI Bleed HPI - General Chief complaint: GI Bleed Stated complaint: NVD Time Seen by Provider: 11/10/23 03:28 Source: EMS Mode of arrival: EMS Limitations: physical limitation - History of Present Illness Initial comments: Patient is a 68-year-old man reportedly with history of stroke, who presents to have evaluation for coffee-ground emesis that had started tonight. The patient not able to give much history. Is able to answer some yes and no questions. There was no fever reported denies dyspnea. MD complaint: coffee ground emesis -: hour(s) Consistency: intermittent Improves with: none Worsens with: none Associated Symptoms: vomiting - Related Data Home Medications Medication Instructions Recorded Confirmed Acetaminophen Oral Susp [Tylenol] 650 mg PEG/G-TUBE QID@,,,08/04/23 10/18/23 Atorvastatin Calcium [Lipitor] 40 mg PEG/G-TUBE HS 08/04/23 10/18/23 Budesonide [Pulmicort] 0.5 mg INHALATION RT-BID@0800,199908/04/23 10/18/23 Docusate Oral Soln [Colace Oral 100 mg PEG/G-TUBE BID 08/04/23 10/18/23 Soln] Insulin Glargine,Hum.rec.anlog 22 units SQ BID@0800,199908/04/23 10/18/23 [Insulin Glargine Solostar] Insulin Lispro [Insulin Lispro See Protocol SQ ACHS@,,,08/04/23 10/18/23 Kwikpen U-100] Ipratropium-Albuterol Nebulize 3 ml INHALATION RT-QID@,,,08/04/23 10/18/23 [Duoneb 0.5 mg-3 mg/3 ml Soln] Metoprolol Tartrate [Lopressor] 12.5 mg PEG/G-TUBE BID 08/04/23 10/18/23 Mirtazapine [Remeron Soluspan] 30 mg PEG/G-TUBE HS 08/04/23 10/18/23 Multivitamins, Thera Liquid 5 ml PO HS 08/04/23 10/18/23 [Theragran Liquid (formulary)] Saline Flush 0.9% 50 ml PEG/G-TUBE DIRECTED 08/04/23 10/18/23 Sennosides [Senokot] 17.2 mg PEG/G-TUBE HS 08/04/23 10/18/23 Ferrous Sulfate [Iron (65 MG 325 mg PEG/G-TUBE DAILY 10/18/23 10/18/23 Elemental)] Gabapentin [Neurontin] 100 mg PEG/G-TUBE HS 10/18/23 10/18/23 Saline Flush 0.9% 300 ml PEG/G-TUBE DIRECTED 10/18/23 10/18/23 Previous Rx's Medication Instructions Recorded Loratadine [Claritin] 5 mg PEG/G-TUBE Q12HR tab 11/10/23 Pantoprazole [Protonix] 40 mg PO BID #1 tab 11/10/23 Allergies Allergy/AdvReac Type Severity Reaction Status Date / Time No Known Allergies Allergy Verified 11/10/23 03:26 Review of Systems ROS Statement: Those systems with pertinent positive or pertinent negative responses have been documented in the HPI. ROS Other: All systems not noted in ROS Statement are negative. Limitations: ROS unobtainable due to patients medical condition Constitutional: Denies: fever Respiratory: Denies: dyspnea Gastrointestinal: Reports: vomiting, hematemesis Musculoskeletal: Denies: back pain Skin: Denies: rash Neurological: Denies: headache Past Medical History Past Medical History: CVA/TIA, Diabetes Mellitus, Renal Disease Additional Past Medical History / Comment(s): hemiplegia and hemparesis post cva, CKD, depression, aphasia, MRSA, anemia, reoccurent uti, htn, generalized muscle weakness. PICC line History of Any Multi-Drug Resistant Organisms: None Reported Past Surgical History: No Surgical Hx Reported Past Psychological History: Unable to Obtain Smoking Status: Unknown if ever smoked Past Alcohol Use History: Unable to Obtain Past Drug Use History: Unable to Obtain General Exam General appearance: alert, in no apparent distress Head exam: Present: atraumatic, normocephalic Eye exam: Present: normal appearance ENT exam: Present: mucous membranes dry Neck exam: Present: normal inspection Respiratory exam: Present: rhonchi. Absent: respiratory distress, wheezes, rales, stridor, accessory muscle use Cardiovascular Exam: Present: normal rhythm, tachycardia, normal heart sounds. Absent: systolic murmur, diastolic murmur, rubs, gallop GI/Abdominal exam: Present: soft, other (Gastric tube left upper quadrant). Absent: distended, tenderness, guarding, rebound, rigid, mass Extremities exam: Present: normal capillary refill, other (Contraction right lower extremity). Absent: normal inspection, pedal edema Neurological exam: Present: alert Skin exam: Present: warm, dry, intact, normal color. Absent: rash Course Vital Signs 11/10/23 11/10/23 11/10/23 03:16 03:36 04:21 Temperature 97.2 F L Pulse Rate 104 H 107 H 100 Respiratory 20 20 18 Rate Blood Pressure 169/63 144/83 122/49 O2 Sat by Pulse 99 96 97 Oximetry 11/10/23 11/10/23 11/10/23 06:02 07:30 10:25 Temperature 98.1 F 98.1 F Pulse Rate 105 H 112 H 98 Respiratory 20 18 18 Rate Blood Pressure 139/73 106/95 105/88 O2 Sat by Pulse 97 99 99 Oximetry Medical Decision Making - Medical Decision Making Was pt. sent in by a medical professional or institution (KEIKO Simpson, CORPORATE ATTORNEY, urgent care, hospital, or long-term...) When possible be specific @ -[Patient sent from care facility to have evaluation for intractable vomiting Did you speak to anyone other than the patient for history (EMS, parent, family, police, friend...)? What history was obtained from this source @ -[No] Did you review nursing and triage notes (agree or disagree)? Why? @ -[I reviewed and agree with nursing and triage notes] Were old charts reviewed (outside hosp., previous admission, EMS record, old EKG, old radiological studies, urgent care reports/EKG's, long-term records)? Report findings @ -[Transfer records were reviewed] Differential Diagnosis (chest pain, altered mental status, abdominal pain women, abdominal pain men, vaginal bleeding, weakness, fever, dyspnea, syncope, headache, dizziness, GI bleed, back pain, seizure, CVA, palpatations, mental health, musculoskeletal)? @ -[Differential vomiting: Appendicitis, cholecystitis, diverticulosis, ischemic bowel, pancreatitis, hepatitis, UTI, gastroenteritis, incarcerated hernia, bowel obstruction, cons tipation, inflammatory bowel, peptic ulcer disease, testicular torsion, this is not meant to be an all-inclusive list EKG interpreted by me (3pts min.). @ -[As above] X-rays interpreted by me (1pt min.). @ -[None done] CT interpreted by me (1pt min.). @ -[None done] U/S interpreted by me (1pt. min.). @ -[None done] What testing was considered but not performed or refused? (CT, X-rays, U/S, l abs)? Why? @ -[None] What meds were considered but not given or refused? Why? @ -[None] Did you discuss the management of the patient with other professionals (professionals i.e. , PA, CORPORATE ATTORNEY, lab, RT, psych nurse, social worker school, product development assistant, teacher, returning officer, dependency case manager)? Give summary @ -Case discussed with admitting physician and treatment recommendations incorporated Was smoking cessation discussed for >3mins.? @ -[No] Was critical care preformed (if so, how long)? @ -[No] Were there social determinants of health that impacted care today? How? (Homelessness, low income, unemployed, alcoholism, drug addiction, transportation, low edu. Level, literacy, decrease access to med. care, [facility], rehab)? @ -[No] Was there de-escalation of care discussed even if they declined (Discuss DNR or withdrawal of care, Hospice)? DNR status @ -[No] What co-morbidities impacted this encounter? (DM, HTN, Smoking, COPD, CAD, Cancer, CVA, ARF, Chemo, Hep., AIDS, mental health diagnosis, sleep apnea, morbid obesity)? @ -[Diabetes, hypertension, recent stroke Was patient admitted / discharged? Hospital course, mention meds given and route, prescriptions, significant lab abnormalities, going to OR and other pertinent info. @ -[Patient will be admitted to have further treatment for vomiting Undiagnosed new problem with uncertain prognosis? @ -[No] Drug Therapy requiring intensive monitoring for toxicity (Heparin, Nitro, Insulin, Cardizem)? @ -[No] Were any procedures done? @ -[No] Diagnosis/symptom? @ -[Intractable nausea and vomiting Acute GI bleeding Acute, or Chronic, or Acute on Chronic? @ -[Acute Uncomplicated (without systemic symptoms) or Complicated (systemic symptoms)? @ -[Uncomplicated Side effects of treatment? @ -[No] Exacerbation, Progression, or Severe Exacerbation? @ -[No] Poses a threat to life or bodily function? How? (Chest pain, [place], [place], pneumonia, PE, COPD, DKA, ARF, appy, cholecystitis, CVA, Diverticulitis, Homicidal, Suicidal, threat to staff... and all critical care pts) @ -[Undetermined at time of admission - Lab Data Result diagrams: 11/10/23 03:36 11/10/23 03:36 Lab Results 11/10/23 11/10/23 11/10/23 Range/Units 03:36 03:36 03:36 WBC 11.5 H (3.8-10.6) k/uL RBC 3.98 L (4.30-5.90) m/uL Hgb 10.3 L (13.0-17.5) gm/dL Hct 32.9 L (39.0-53.0) % MCV 82.7 (80.0-100.0) fL MCH 26.0 (25.0-35.0) pg MCHC 31.4 (31.0-37.0) g/dL RDW 16.7 H (11.5-15.5) % Plt Count 313 (150-450) k/uL MPV 8.4 Neutrophils % 86 % Lymphocytes % 6 % Monocytes % 5 % Eosinophils % 2 % Basophils % 0 % Neutrophils # 9.8 H (1.3-7.7) k/uL Lymphocytes # 0.7 L (1.0-4.8) k/uL Monocytes # 0.5 (0-1.0) k/uL Eosinophils # 0.3 (0-0.7) k/uL Basophils # 0.0 (0-0.2) k/uL Hypochromasia Moderate Anisocytosis Slight PT 10.8 (10.0-12.5) sec INR 1.0 (<1.2) APTT 25.9 (22.0-30.0) sec Sodium 141 (137-145) mmol/L Potassium 5.0 (3.5-5.1) mmol/L Chloride 107 (98-107) mmol/L Carbon Dioxide 26 (22-30) mmol/L Anion Gap 8 mmol/L BUN 35 H (9-20) mg/dL Creatinine 1.21 (0.66-1.25) mg/dL Est GFR (CKD-EPI)AfAm 71 (>60 ml/min/1.73 sqM) Est GFR (CKD-EPI)NonAf 61 (>60 ml/min/1.73 sqM) Glucose 137 H (74-99) mg/dL Plasma Lactic Acid Javier (0.7-2.0) mmol/L Calcium 8.9 (8.4-10.2) mg/dL Total Bilirubin 0.3 (0.2-1.3) mg/dL AST 26 (17-59) U/L ALT 27 (4-49) U/L Alkaline Phosphatase 135 H (38-126) U/L Troponin I (0.000-0.034) ng/mL Total Protein 7.1 (6.3-8.2) g/dL Albumin 4.0 (3.5-5.0) g/dL Blood Type Blood Type Recheck Bld Type Recheck Status Antibody Screen Spec Expiration Date 11/10/23 11/10/23 11/10/23 Range/Units 03:36 03:36 03:45 WBC (3.8-10.6) k/uL RBC (4.30-5.90) m/uL Hgb (13.0-17.5) gm/dL Hct (39.0-53.0) % MCV (80.0-100.0) fL MCH (25.0-35.0) pg MCHC (31.0-37.0) g/dL RDW (11.5-15.5) % Plt Count (150-450) k/uL MPV Neutrophils % % Lymphocytes % % Monocytes % % Eosinophils % % Basophils % % Neutrophils # (1.3-7.7) k/uL Lymphocytes # (1.0-4.8) k/uL Monocytes # (0-1.0) k/uL Eosinophils # (0-0.7) k/uL Basophils # (0-0.2) k/uL Hypochromasia Anisocytosis PT (10.0-12.5) sec INR (<1.2) APTT (22.0-30.0) sec Sodium (137-145) mmol/L Potassium (3.5-5.1) mmol/L Chloride (98-107) mmol/L Carbon Dioxide (22-30) mmol/L Anion Gap mmol/L BUN (9-20) mg/dL Creatinine (0.66-1.25) mg/dL Est GFR (CKD-EPI)AfAm (>60 ml/min/1.73 sqM) Est GFR (CKD-EPI)NonAf (>60 ml/min/1.73 sqM) Glucose (74-99) mg/dL Plasma Lactic Acid Javier 1.0 (0.7-2.0) mmol/L Calcium (8.4-10.2) mg/dL Total Bilirubin (0.2-1.3) mg/dL AST (17-59) U/L ALT (4-49) U/L Alkaline Phosphatase (38-126) U/L Troponin I <0.012 (0.000-0.034) ng/mL Total Protein (6.3-8.2) g/dL Albumin (3.5-5.0) g/dL Blood Type A Positive Blood Type Recheck A Pos Bld Type Recheck Status No Antibody Screen NEGATIVE Spec Expiration Date 11/13/20232344 Disposition Clinical Impression: Intractable vomiting, GI bleeding Dis[facility] Condition: Poor Is patient prescribed a controlled substance at d/c from ED?: No
[2023-11-10 05:05] LABS: ALT 27 U/L (4-49); AST 26 U/L (17-59); African American GFR (CKD) 71 (>60 ml/min/1.73 sqM); Alkaline Phosphatase 135 U/L (38-126); Anion Gap 8 mmol/L; Blood Urea Nitrogen 35 mg/dL (9-20); Calcium 8.9 mg/dL (8.4-10.2); Carbon Dioxide 26 mmol/L (22-30); Chloride 107 mmol/L (98-107); Glucose 137 mg/dL (74-99); Non-African American GFR(CKD) 61 (>60 ml/min/1.73 sqM); Sodium 141 mmol/L (137-145); Total Bilirubin 0.3 mg/dL (0.2-1.3); Total Protein 7.1 g/dL (6.3-8.2)
[2023-11-10] MEDS ORDERED: ONDANSETRON 4 MG/2 ML VIAL IVP PRN (05:53)
[2023-11-10] MEDS ORDERED: ACETAMINOPHEN TAB 325 MG TAB PO PRN (05:53)
[2023-11-10] MEDS ORDERED: NALOXONE 0.4 MG/ML 1 ML VIAL IV PRN (05:53)
[2023-11-10] MEDS: SODIUM CHLORIDE 0.9% 1,000 ML IV SCH (06:43)
[2023-11-10 07:32] VITALS: RESP 18; TEMP 98.1
[2023-11-10] MEDS: LORATADINE 10 MG TAB PEG/G-TUBE SCH (08:25)
[2023-11-10] MEDS: PANTOPRAZOLE 40 MG/10 ML VIAL IV SCH (08:27)
[2023-11-10] MEDS ORDERED: DEXTROSE 50% SYRINGE 50 ML IVP PRN ×2 (09:18)
[2023-11-10 09:23] LABS: Glucose,Whole Blood 127 mg/dL (70-110)
[2023-11-10] MEDS: INSULIN DETEMIR (LEVEMIR) 100 UNIT/ML SYR SQ SCH (09:25)
[2023-11-10] MEDS: SODIUM CHLORIDE 0.9% 50 ML BAG IV SCH (09:36)
[2023-11-10] MEDS: METOPROLOL TARTRATE 12.5 MG TAB PEG/G-TUBE SCH (09:36)
[2023-11-10] MEDS: SODIUM CHLORIDE 0.9% 500 ML BAG IRRIGATION SCH (09:37)
[2023-11-10 10:28] VITALS: BP 105/88; PULSE 98
[2023-11-10] MEDS: IPRATROPIUM-ALBUTEROL 3 ML NEB INHALATION SCH (10:31)
[2023-11-10] MEDS: ACETAMINOPHEN ORAL SUSP 160 MG/5 ML CUP PEG/G-TUBE SCH (10:31)
[2023-11-10] MEDS: BUDESONIDE 0.5 MG/2 ML NEBU INHALATION SCH (10:31)
--- NOTE | 2023-11-10 10:54 | P.HPIM ---
History of Present Illness H&P Date: 11/10/23 Chief Complaint: Coffee-ground emesis This is a 68-year-old patient, is a resident of [facility]. previous stroke and patient is aphasic. Right-sided weakness. Patient was brought in with EMS to the ER. Patient had emesis projectile vomiting coffee-ground. Patient nonverbal. He cannot give a history. Has a PEG tube. Patient is under hospice. They are unable to contact patient's POA. And Mingo of calling the brother. 2 0 okay to go to the ER. Later the PA 8 called and said she wanted patient back with hospice. Patient otherwise appears comfortable. Review of systems cannot be obtained as patient is nonverbal Physical examination: VITAL SIGNS: 98.1, 98, 18, 106 x 95, 99% room air GENERAL: BMI 19.3, laying in bed, awake EYES: Pupils equal. Conjunctiva manju l. HEENT: [External appearance of nose and ears normal, oral cavity dry mucous membrane NECK: JVD not raised; masses not palpable. HEART: First and second heart sounds are normal; no edema. LUNGS: Respiratory rate normal; clear to auscultation. ABDOMEN: Soft, nontender, liver spleen not palpable, no masses palpable. PEG tube PSYCH: [Nonverbal l. MUSCULOSKELETAL:No Clubbing/cyanosis;muscles-grossly intact NEUROLOGICAL: Patient is aphasic. No movement in the right arm or right leg. Contracture of the right hand.. LYMPHATICS: No lymph nodes palpable in the axilla and neck INVESTIGATIONS, reviewed in the clinical context: November 09: White count 9.5 hemoglobin 10.3 platelets 313 potassium 5 creatinine 1.21 Previous labs: Hemoglobin 11.1 on October 18, 2023 Assessment and plan: -Acute coffee-ground emesis with projectile vomiting around midnight today. Patient been placed on PPI. NPO. -Probable chronic kidney disease. Stage III.. -Diabetes mellitus type 2, chronically insulin Follow Accu-Cheks. Hold morning dose of insulin. -Right hemiparesis from prior stroke. Patient nonambulatory. -Chronic dysphagia and dysarthria PEG tube for feeding -DNR -POA, daughter Mary Patient is NPO. Hold tube feeding. PPI. Spoke to daughter Mary over the phone. She does not believe will change outcome much with the EGD colonoscopy. I agree. Given the as patient specially on hospice. Will cancel GI consult. Hold morning dose of insulin. Past Medical History Past Medical History: CVA/TIA, Diabetes Mellitus, Renal Disease Additional Past Medical History / Comment(s): hemiplegia and hemparesis post cva, CKD, depression, aphasia, MRSA, anemia, reoccurent uti, htn, generalized muscle weakness. PICC line History of Any Multi-Drug Resistant Organisms: None Reported Past Surgical History: No Surgical Hx Reported Past Psychological History: Unable to Obtain Smoking Status: Unknown if ever smoked Past Alcohol Use History: Unable to Obtain Past Drug Use History: Unable to Obtain Medications and Allergies Home Medications Medication Instructions Recorded Confirmed Type Acetaminophen Oral Susp [Tylenol] 650 mg PEG/G-TUBE QID@,,,08/04/23 10/18/23 History Atorvastatin Calcium [Lipitor] 40 mg PEG/G-TUBE HS 08/04/23 10/18/23 History Budesonide [Pulmicort] 0.5 mg INHALATION RT-BID@0800,199908/04/23 10/18/23 History Docusate Oral Soln [Colace Oral 100 mg PEG/G-TUBE BID 08/04/23 10/18/23 History Soln] Insulin Glargine,Hum.rec.anlog 22 units SQ BID@0800,199908/04/23 10/18/23 History [Insulin Glargine Solostar] Insulin Lispro [Insulin Lispro See Protocol SQ ACHS@,,,08/04/23 10/18/23 History Kwikpen U-100] Ipratropium-Albuterol Nebulize 3 ml INHALATION RT-QID@,,,08/04/23 10/18/23 History [Duoneb 0.5 mg-3 mg/3 ml Soln] Metoprolol Tartrate [Lopressor] 12.5 mg PEG/G-TUBE BID 08/04/23 10/18/23 History Mirtazapine [Remeron Soluspan] 30 mg PEG/G-TUBE HS 08/04/23 10/18/23 History Multivitamins, Thera Liquid 5 ml PO HS 08/04/23 10/18/23 History [Theragran Liquid (formulary)] Saline Flush 0.9% 50 ml PEG/G-TUBE DIRECTED 08/04/23 10/18/23 History Sennosides [Senokot] 17.2 mg PEG/G-TUBE HS 08/04/23 10/18/23 History Ferrous Sulfate [Iron (65 MG 325 mg PEG/G-TUBE DAILY 10/18/23 10/18/23 History Elemental)] Gabapentin [Neurontin] 100 mg PEG/G-TUBE HS 10/18/23 10/18/23 History Saline Flush 0.9% 300 ml PEG/G-TUBE DIRECTED 10/18/23 10/18/23 History Loratadine [Claritin] 5 mg PEG/G-TUBE Q12HR tab 11/10/23 Rx Pantoprazole [Protonix] 40 mg PO BID #1 tab 11/10/23 Rx Allergies Allergy/AdvReac Type Severity Reaction Status Date / Time No Known Allergies Allergy Verified 11/10/23 03:26 Physical Exam Vitals: Vital Signs Temp Pulse Resp BP Pulse Ox 11/10/23 07:30 98.1 F 112 H 18 106/95 99 11/10/23 06:02 105 H 20 139/73 97 11/10/23 04:21 100 18 122/49 97 11/10/23 03:36 107 H 20 144/83 96 11/10/23 03:16 97.2 F L 104 H 20 169/63 99 Intake and Output 11/09/23 11/10/23 11/10/23 22:59 06:59 14:59 Other: Weight 55.792 kg Results CBC & Chem 7: 11/10/23 03:36 11/10/23 03:36 Labs: Abnormal Lab Results - Last 24 Hours (Table) 11/10/23 11/10/23 Range/Units 03:36 03:36 WBC 11.5 H (3.8-10.6) k/uL RBC 3.98 L (4.30-5.90) m/uL Hgb 10.3 L (13.0-17.5) gm/dL Hct 32.9 L (39.0-53.0) % RDW 16.7 H (11.5-15.5) % Neutrophils # 9.8 H (1.3-7.7) k/uL Lymphocytes # 0.7 L (1.0-4.8) k/uL BUN 35 H (9-20) mg/dL Glucose 137 H (74-99) mg/dL Alkaline Phosphatase 135 H (38-126) U/L
--- NOTE | 2023-11-10 11:16 | P.DS ---
Providers Date of admission: 11/10/23 05:53 Expected date of discharge: 11/10/23 Attending physician: Zbigniew Santo Consults: 11/10/23 05:53 Consult Physician Routine Consulting Provider: Roxana Reed Consult Reason/Comments: GI Bleeding Do you want consulting provider notified?: Yes Primary care physician: [facility] Course: Chief Complaint: Coffee-ground emesis This is a 68-year-old patient, is a resident of [facility]. previous stroke and patient is aphasic. Right-sided weakness. Patient was brought in with EMS to the ER. Patient had emesis projectile vomiting coffee-ground. Patient nonverbal. He cannot give a history. Has a PEG tube. Patient is under hospice. They are unable to contact patient's POA. And Mingo of calling the brother. 2 0 okay to go to the ER. Later the PA 8 called and said she wanted patient back with hospice. Patient otherwise appears comfortable. Spoke to the egg caser Patricia. Patient will return to [facility] under hospice. Tube feeding to be started later tonight. Physical examination: VITAL SIGNS: 98.1, 98, 18, 106 x 95, 99% room air GENERAL: BMI 19.3, laying in bed, awake EYES: Pupils equal. Conjunctiva manju l. HEENT: [External appearance of nose and ears normal, oral cavity dry mucous membrane NECK: JVD not raised; masses not palpable. HEART: First and second heart sounds are normal; no edema. LUNGS: Respiratory rate normal; clear to auscultation. ABDOMEN: Soft, nontender, liver spleen not palpable, no masses palpable. PEG tube PSYCH: [Nonverbal l. MUSCULOSKELETAL:No Clubbing/cyanosis;muscles-grossly intact NEUROLOGICAL: Patient is aphasic. No movement in the right arm or right leg. Contracture of the right hand.. LYMPHATICS: No lymph nodes palpable in the axilla and neck INVESTIGATIONS, reviewed in the clinical context: November 09: White count 9.5 hemoglobin 10.3 platelets 313 potassium 5 creatinine 1.21 Previous labs: Hemoglobin 11.1 on October 18, 2023 Assessment and plan: -Acute coffee-ground emesis with projectile vomiting around midnight today. Patient been placed on PPI. Tube feeding to be attempted to be started tonight. -Probable chronic kidney disease. Stage III.. -Diabetes mellitus type 2, chronically insulin Follow Accu-Cheks. Hold morning dose of insulin. -Right hemiparesis from prior stroke. Patient nonambulatory. -Chronic dysphagia and dysarthria PEG tube for feeding -DNR, hospice -POA, daughter Mary : Disposition [facility] Past Medical History Past Medical History: CVA/TIA, Diabetes Mellitus, Renal Disease Additional Past Medical History / Comment(s): hemiplegia and hemparesis post cva, CKD, depression, aphasia, MRSA, anemia, reoccurent uti, htn, generalized muscle weakness. PICC line History of Any Multi-Drug Resistant Organisms: None Reported Past Surgical History: No Surgical Hx Reported Past Psychological History: Unable to Obtain Smoking Status: Unknown if ever smoked Past Alcohol Use History: Unable to Obtain Past Drug Use History: Unable to Obtain Plan - Discharge Summary New Discharge Prescriptions: New Loratadine [Claritin] 5 mg PEG/G-TUBE Q12HR tab Pantoprazole [Protonix] 40 mg PO BID #1 tab Continue Saline Flush 0.9% 50 ml PEG/G-TUBE DIRECTED Acetaminophen Oral Susp [Tylenol] 650 mg PEG/G-TUBE QID@,,,23 Atorvastatin Calcium [Lipitor] 40 mg PEG/G-TUBE HS Docusate Oral Soln [Colace Oral Soln] 100 mg PEG/G-TUBE BID Insulin Glargine,Hum.rec.anlog [Insulin Glargine Solostar] 22 units SQ BID@08,1999 Metoprolol Tartrate [Lopressor] 12.5 mg PEG/G-TUBE BID Multivitamins, Thera Liquid [Theragran Liquid (formulary)] 5 ml PO HS Sennosides [Senokot] 17.2 mg PEG/G-TUBE HS Saline Flush 0.9% 300 ml PEG/G-TUBE DIRECTED Ferrous Sulfate [Iron (65 MG Elemental)] 325 mg PEG/G-TUBE DAILY Gabapentin [Neurontin] 100 mg PEG/G-TUBE HS Budesonide [Pulmicort] 0.5 mg INHALATION RT-BID@0800,1999 Insulin Lispro [Insulin Lispro Kwikpen U-100] See Protocol SQ ACHS@,,17,21 Ipratropium-Albuterol Nebulize [Duoneb 0.5 mg-3 mg/3 ml Soln] 3 ml INHALATION RT-QID@,,, Mirtazapine [Remeron Soluspan] 30 mg PEG/G-TUBE HS Discontinued Famotidine [Pepcid] 20 mg PEG/G-TUBE BID Discharge Medication List Acetaminophen Oral Susp [Tylenol] 650 mg PEG/G-TUBE QID@,,,08/04/23 [History] Atorvastatin Calcium [Lipitor] 40 mg PEG/G-TUBE HS 08/04/23 [History] Budesonide [Pulmicort] 0.5 mg INHALATION RT-BID@0800,199908/04/23 [History] Docusate Oral Soln [Colace Oral Soln] 100 mg PEG/G-TUBE BID 08/04/23 [History] Insulin Glargine,Hum.rec.anlog [Insulin Glargine Solostar] 22 units SQ BID@0800,199908/04/23 [History] Insulin Lispro [Insulin Lispro Kwikpen U-100] See Protocol SQ ACHS@,,,08/04/23 [History] Ipratropium-Albuterol Nebulize [Duoneb 0.5 mg-3 mg/3 ml Soln] 3 ml INHALATION RT-QID@,,,08/04/23 [History] Metoprolol Tartrate [Lopressor] 12.5 mg PEG/G-TUBE BID 08/04/23 [History] Mirtazapine [Remeron Soluspan] 30 mg PEG/G-TUBE HS 08/04/23 [History] Multivitamins, Thera Liquid [Theragran Liquid (formulary)] 5 ml PO HS 08/04/23 [History] Saline Flush 0.9% 50 ml PEG/G-TUBE DIRECTED 08/04/23 [History] Sennosides [Senokot] 17.2 mg PEG/G-TUBE HS 08/04/23 [History] Ferrous Sulfate [Iron (65 MG Elemental)] 325 mg PEG/G-TUBE DAILY 10/18/23 [History] Gabapentin [Neurontin] 100 mg PEG/G-TUBE HS 10/18/23 [History] Saline Flush 0.9% 300 ml PEG/G-TUBE DIRECTED 10/18/23 [History] Loratadine [Claritin] 5 mg PEG/G-TUBE Q12HR tab 11/10/23 [Rx] Pantoprazole [Protonix] 40 mg PO BID #1 tab 11/10/23 [Rx] Follow up Appointment(s)/Referral(s): Tony Bhatia DO [Primary Care Provider] - 1-2 days Patient Instructions/Handouts: Gastrointestinal Bleeding (ED) Activity/Diet/Wound Care/Special Instructions: start tube feeding at 9 pm Discharge Disposition: DISCH TO [facility]OSP[facility]
[2023-11-10] MEDS ORDERED: INSULIN ASPART (NovoLOG) 100 UNIT/ML VIAL SQ SCH (12:30)
[2023-11-10] MEDS ORDERED: MULTIVITAMINS, THERA LIQUID 237 ML BOTTLE PO SCH (21:00)
[2023-11-10] MEDS ORDERED: DOCUSATE ORAL SOLN 100 MG/10 ML CUP PEG/G-TUBE SCH (21:00)
[2023-11-10] MEDS ORDERED: ATORVASTATIN 40 MG TAB PEG/G-TUBE SCH (21:00)
[2023-11-10] MEDS ORDERED: MIRTAZAPINE 15 MG TAB PEG/G-TUBE SCH (21:00)
[2023-11-10] MEDS ORDERED: SENNOSIDES 8.6 MG TAB PEG/G-TUBE SCH (21:00)
[2023-11-10] MEDS ORDERED: GABAPENTIN 100 MG CAP PEG/G-TUBE SCH (21:00)
[2023-11-11] MEDS ORDERED: FERROUS SULFATE 325 MG TAB PO SCH (09:00)
== END 2023-11-10 10:25 | disposition hospice, inpatient (51) | DRG 378 ==
LOC: EC 03:14 → 4SSUR 05:53
PROVIDERS: ADMIT Hospitalist; ATTEND Hospitalist
DX: K92.2 Gastrointestinal hemorrhage, unspecified (principal); I69.351 Hemiplegia and hemiparesis following cerebral infarction affecting right dominant side; E11.22 Type 2 diabetes mellitus with diabetic chronic kidney disease; N18.30 Chronic kidney disease, stage 3 unspecified; Z93.1 Gastrostomy status; Z79.4 Long term (current) use of insulin; Z66 Do not resuscitate; Z51.5 Encounter for palliative care; I12.9 Hypertensive chronic kidney disease with stage 1 through stage 4 chronic kidney disease, or unspecified chronic kidney disease; I69.320 Aphasia following cerebral infarction; Z79.891 Long term (current) use of opiate analgesic; Z79.1 Long term (current) use of non-steroidal anti-inflammatories (NSAID); R11.12 Projectile vomiting; R13.10 Dysphagia, unspecified; R47.1 Dysarthria and anarthria; Z79.899 Other long term (current) drug therapy; Z79.51 Long term (current) use of inhaled steroids
CPT/HCPCS: 36415; 80053; 83605; 84484; 85025; 85610; 85730; 86850; 86900; 86901; 96361; 96374; 96375; 99285